=== PATIENT | male | born 1990 | race Two or more races ===

== ENCOUNTER 2024-12-07 18:45 | Emergency (ER) | payer MEDICAID, OTHER ==
[~2024-12-07] VITALS: Ht 157.5 cm; Wt 65.9 kg
[2024-12-07 18:47] VITALS: BP 159/111; RESP 15; TEMP 97.9; O2SAT 97
[2024-12-07 19:13] VITALS: PULSE 136
--- NOTE | 2024-12-07 19:13 | ED.PDOC ---
History of Present Illness HPI Comments 34 y/o M presents with c/c palpitations, blurry vision, and bilateral leg cramps. Patient endorses on sudden and atraumatic onset of symptoms after taking 2x bites out of his spaghetti meal, earlier, this evening. He states on consuming multiple drinks of alcohol since this morning but comments on never experiencing aforementioned symptoms whenever drinking in the past. No endorsement of any recent sick contacts, travel, injuries, or significant past medical, surgical, family history. Denial of any shortness of breath, chest pain, fever, chills, or further associated symptoms. Chief Complaint: Palpitations Time Seen by MD: 18:55 Reviewed Notes: Nurses Notes, Medications, Allergies Allergies: Coded Allergies: NO KNOWN ALLERGIES (Unverified , 12/07/24) Information Source: Patient Mode of Arrival: Ambulatory Past Medical History PAST MEDICAL HISTORY: Denies Surgical History: Denies all surgeries Social History Smoker: Non-Smoker Alcohol: Occasionally Drugs: Denies Drug Use Lives In: Home All Other Systems: Reviewed and Negative (Comprehensive systems review obtained and negative except for what is stated in the HPI.) Physical Exam General Appearance: Mild Distress, Normal HEENT: Normal ENT Inspection, Pharynx Normal, TMs Normal Neck: Full Range of Motion, Non-Tender, Normal, Normal Inspection Respiratory: Chest Non-Tender, Lungs Clear, No Accessory Muscle Use, No Respiratory Distress, Normal Breath Sounds Cardiovascular: No Edema, No JVD, No Murmur, No Gallop, Normal Peripheral Pulses, Regular Rate/Rhythm Breast Exam: Deferred Gastrointestinal: No Organomegaly, Non Tender, No Pulsatile Mass, Normal Bowel Sounds, Soft Genitalia: Deferred Pelvic: Deferred Rectal: Deferred Extremities: No calf tenderness, Normal capillary refill, Normal inspection, Normal range of motion, Non-tender, No pedal edema Musculoskeletal : Apperance: Normal Neurologic: Alert, 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 Was a procedure done?: No EKG EKG : Pulse Rate (adult): 136 [place]: Normal Cardiac Rhythm: ST Block: None Hypertrophy: None ST: Normal Differential Dx Considerations may include: Arrhythmia, electrolyte imbalance, dehydration, tachycardia, anxiety, NC, PE, ACS, among others X-Ray, Labs, Meds, VS Vital Signs Date Time Temp Pulse Resp B/P (MAP) Pulse Ox O2 Delivery O2 Flow Rate FiO2 12/07/24 19:13 136 12/07/24 18:53 136 12/07/24 18:47 97.9 145 15 159/111 97 97.9 Lab Test 12/07/24 19:57 12/07/24 19:04 Range/Units Troponin I High Sensitivity 5 < 3 L </=54 ng/L White Blood Count 13.3 H 4.4-10.8 10^3/uL Red Blood Count 5.52 4.5-5.90 10^6/uL Hemoglobin 17.3 13.5-17.5 g/dL Hematocrit 49.7 41.0-53.0 % Mean Corpuscular Volume 90.1 80.0-100.0 fL Mean Corpuscular Hemoglobin 31.4 28.0-32.0 pg Mean Corpuscular Hemoglobin Concent 34.9 32.0-36.0 g/dL Red Cell Distribution Width 13.2 11.8-14.3 % Platelet Count 367 140-450 10^3/uL Mean Platelet Volume 8.0 6.9-10.8 fL Neutrophils (%) (Auto) 76.9 37.0-80.0 % Lymphocytes (%) (Auto) 15.2 10.0-50.0 % Monocytes (%) (Auto) 6.8 0.0-12.0 % Eosinophils (%) (Auto) 0.8 0.0-7.0 % Basophils (%) (Auto) 0.3 0.0-2.0 % Neutrophils # (Auto) 10.2 H 1.6-8.6 10 ^3/uL Lymphocytes # (Auto) 2.0 0.4-5.4 10 ^3/uL Monocytes # (Auto) 0.9 0-1.3 10 ^3/uL Eosinophils # (Auto) 0.1 0-0.8 10 ^3/uL Basophils # (Auto) 0 0-0.2 10 ^3/uL Nucleated Red Blood Cells 0.0 % Sodium Level 137 136-145 mmol/L Potassium Level 3.7 3.5-5.1 mmol/L Chloride Level 102 98-107 mmol/L Carbon Dioxide Level 23 20-31 mmol/L Anion Gap 12 5-15 Blood Urea Nitrogen 18 9-23 mg/dL Creatinine 1.28 0.700-1.30 mg/dL Glomerular Filtration Rate Calc 76 >90 mL/min BUN/Creatinine Ratio 14.1 10.0-20.0 Serum Glucose 138 H 74-106 mg/dL Calcium Level 10.1 8.7-10.4 mg/dL Magnesium Level 2.4 1.6-2.6 mg/dL Total Bilirubin 3.5 H 0.2-1.0 mg/dL Aspartate Amino Transferase (AST) 24 13-40 U/L Alanine Aminotransferase (ALT) 21 7-40 U/L Alkaline Phosphatase 83 46-116 U/L Creatine Kinase 209 H 46-171 U/L Total Protein 9.1 H 5.7-8.2 g/dL Albumin 5.3 H 3.2-4.8 g/dL Plasma/Serum Blood Alcohol < 3.0 <10 mg/dL Time of 1ST Reevaluation: 19:25 Reevaluation 1ST: Unchanged Patient Education/Counseling: Diagnosis, Treatment, Need For Follow Up Family Education/Counseling: No Family Present SEPSIS Sepsis Screen Date sepsis recognized/suspect: Dec 07, 2024 Time Sepsis recognized/suspect: 1848 Recent Procedure: No On Antibiotic Therapy: No Respiratory Rate >20: No Heart Rate >90: Yes Temp<36 C (96.8 F) or >38.3 C: No SBP <90 or MAP <65 mmHG: No New Acute Mental Status Change: No Is the patient on CPAP, BIPAP,: No Physician Orders Electrocardigram (12/07/24 18:51) Electrocardigram (12/07/24 19:51) Electrocardigram (12/07/24 21:51) Drug Screen (12/07/24 19:01) Vital Signs Date Time Temp Pulse Resp B/P (MAP) Pulse Ox O2 Delivery O2 Flow Rate FiO2 12/07/24 19:13 136 12/07/24 18:53 136 12/07/24 18:47 97.9 145 15 159/111 97 97.9 Laboratory Tests Test 12/07/24 19:04 White Blood Count 13.3 10^3/uL (4.4-10.8) H Departure 1 Departure Time of Disposition: 21:10 Impression: Primary Impression: Adverse drug reaction Additional Impression: Palpitations Disposition: HOME / SELF CARE / HOMELESS Condition: Stable Discharged With: Self Critical Care Note Critical Care Time?: No Stability Stability form required: No Heart Score Heart Score: Heart Score Response (Comments) Value History N/A 0 EKG N/A 0 Age N/A 0 Risk Factors N/A 0 Troponin N/A 0 Total 0 I personally scribed for JAGJIT RAMACHANDRAN MD ([email or web address]) on 12/07/24 at 19:13. Electronically submitted by Kolby Rios [email or web address]). JAGJIT RAMACHANDRAN MD Dec 07, 2024 19:13
[2024-12-07] MEDS ORDERED: LORazepam 2MG/ML-1ML VIAL IV ONE (19:15)
[2024-12-07] MEDS ORDERED: SODIUM CHLORIDE 0.9% 1,000 ML IVB ONE (19:15)
[2024-12-07] MEDS ORDERED: ONDANSETRON HCL 4 MG/2 ML VIAL IV ONE (19:15)
[2024-12-07 19:20] LABS: Hematocrit 49.7 % (41.0-53.0); Hemoglobin 17.3 g/dL (13.5-17.5); Mean Corpuscular Hemoglobin 31.4 pg (28.0-32.0); Mean Corpuscular Volume 90.1 fL (80.0-100.0); Nucleated Red Blood Cells % 0.0 %
[2024-12-07 19:31] LABS: Alanine Aminotransferase 21 U/L (7-40); Alkaline Phosphatase 83 U/L (46-116); Anion Gap 12 (5-15); BUN/Creatinine Ratio 14.1 (10.0-20.0); Blood Urea Nitrogen 18 mg/dL (9-23); Calcium 10.1 mg/dL (8.7-10.4); Carbon Dioxide 23 mmol/L (20-31); Chloride 102 mmol/L (98-107); Magnesium 2.4 mg/dL (1.6-2.6); Potassium 3.7 mmol/L (3.5-5.1); Sodium 137 mmol/L (136-145)
[2024-12-07 19:34] LABS: Albumin 5.3 g/dL (3.2-4.8); Bilirubin, Total 3.5 mg/dL (0.2-1.0); Glucose 138 mg/dL (74-106); Total Protein 9.1 g/dL (5.7-8.2)
--- NOTE | 2024-12-08 13:29 | ECG ---
[facility] Test Date: 2024-12-07 Test Time: 18:53:23 Pat Name: MARY SIMON Department: ED Room: Gender: Spice Fumigator: JULIA : 1990 Requested By: DESIRE MOLINA Order Number: [id number] Reading MD: Measurements Intervals [place] Rate: 136 P: 69 CA: 124 QRS: 69 QRSD: 85 T: 9 QT: 287 QTc: 432 Interpretive Statements Sinus tachycardia Consider right atrial enlargement Please click the below link to view image of tracing.
== END 2024-12-07 20:30 | disposition left against medical advice (07) ==
LOC: ER 18:45
DX: R00.2 Palpitations (principal); T50.905A Adverse effect of unspecified drugs, medicaments and biological substances, initial encounter; Z79.899 Other long term (current) drug therapy; Y92.89 Other specified places as the place of occurrence of the external cause
CPT/HCPCS: 36415; 80053; 80320; 82550; 83735; 84484; 85025; 93005